=== PATIENT | male | born 1955 | race Caucasian/White ===

== ENCOUNTER 2017-05-04 10:19 | Emergency (ER) | payer OTHER ==
[~2017-05-04] VITALS: Ht 175.3 cm; Wt 75.4 kg
[2017-05-04 11:49] LABS: BLOOD UREA NITROGEN 15 mg/dL (7-18)
[2017-05-04 14:15] VITALS: BP 136/90
== END 2017-05-04 14:18 | disposition home or self-care (01) ==
LOC: ED 12:29
DX: L03.114 Cellulitis of left upper limb (principal); Z88.0 Allergy status to penicillin
CPT/HCPCS: 36415; 80048; 82040; 85025; 99285